=== PATIENT | male | born 1990 | race African-American/Black ===

== ENCOUNTER 2019-03-17 10:16 | Inpatient (IN) ==
[2019-03-17] MEDS ORDERED: ASPIRIN PO ONE ×2 (10:23→15:14)
[2019-03-17 11:02] LABS: BASO# 0.04 X1000 (0.0-0.2); BASO% 0.6 % (0.0-0.8); EOS# 0.11 X1000 (0.0-0.7); EOS% 1.6 % (0.0-10.0); HEMATOCRIT 49.6 % (42.0-52.0); HEMOGLOBIN 16.2 g/dL (14.0-18.0); LYMPH# 2.77 X1000 (1.2-3.4); LYMPH% 40.6 % (20.5-51.1); MCHC 32.7 g/dL (33-37); MCV 82.5 FL (81-99); MONO# 0.53 X1000 (0.11-0.59); MONO% 7.8 % (1.7-9.3); MPV 11.2 FL (7.4-10.4); NEUT# 3.37 X1000 (1.4-6.5); NEUT% 49.4 % (42.2-75.2); PLT 197 X1000 (130-400); RBC 6.01 XMIL (4.7-6.1); RDW 13.4 % (11.5-14.5); WBC 6.82 X1000 (4.8-10.8)
[2019-03-17 11:11] LABS: INR 0.92; PROTIME 12.4 Seconds (11.0-16.0)
[2019-03-17 11:12] LABS: PTT 25.6 Seconds (22.3-41.8)
--- NOTE | 2019-03-17 11:12 | Diag Imaging Result Doc PS360 ---
CHEST-2 VIEWS - 03/17/2019 INDICATION: chest pain COMPARISON: 08/27/2014 FINDINGS: The lungs are normally expanded and clear. Heart size and mediastinal contours are normal. No pneumothorax or pleural effusion. IMPRESSION: Negative exam. Electronically signed by Zac Claire 03/17/2019 11:09 AM
[2019-03-17 11:21] LABS: AGAP 10; ALB/GLOB RATIO 1.5; ALBUMIN 4.3 g/dL (3.5-5.0); ALKALINE PHOSPHATASE 100 U/L (32-122); BUN 15 mg/dL (8-22); CALCIUM 9.3 mg/dL (8.8-10.2); CHLORIDE 103 mmol/L (98-107); COSMO 279; CREATININE 1.2 mg/dL (0.7-1.2); ESTIMATED GFR > 60; GLUCOSE 102 mg/dL (70-104); GOT 19 U/L (10-34); GPT 23 U/L (10-44); POTASSIUM 4.4 mmol/L (3.5-5.1); SODIUM 139 mmol/L (136-145); TCO2 26 mmol/L (25-35); TOTAL BILIRUBIN 0.78 mg/dL (0.20-1.00); TOTAL PROTEIN 7.2 g/dL (6.3-8.3)
[2019-03-17 11:32] LABS: CK PROFILE 239 U/L (24-204)
[2019-03-17 11:48] LABS: CK INDEX 1.2 (0.0-2.5); CK-MB 2.85 ng/mL (0.0-5.0)
--- NOTE | 2019-03-17 11:55 | EKG Report ---
Test Performed on : 03/17/2019 10:20:59 AM Test Reason : chest pain Blood Pressure : / mmHG Vent. Rate : 074 BPM Atrial Rate : 074 BPM P-R Int : 152 ms QRS Dur : 086 ms QT Int : 336 ms P-R-T Axes : 082 051 037 degrees QTc Int : 372 ms Normal sinus rhythm. with sinus arrhythmia. Normal ECG No previous ECGs available Unconfirmed Result
--- NOTE | 2019-03-17 15:36 | PROVIDER DOCUMENTATION ---
This chart was entered by Marily Morse Scribe, acting as scribe for Lv Garza MD. HPI-General Adult - General Chief Complaint: Chest Pain Stated Complaint: "FEELING WEIRD" HEART PT Time Seen by Provider: 03/17/19 11:21 Source: patient, family Allergies/Adverse Reactions: Patient Allergies Allergy/AdvReac Type Severity Reaction Status Date / Time No Known Allergies Allergy Verified 06/19/18 07:35 Home Medications: Home Medication List Medication Instructions Recorded Confirmed Last Taken Type Aspirin [Aspir-Low] 1 tab PO DAILY 03/17/19 03/17/19 Unknown History Atorvastatin Calcium 1 tab PO QHS 03/17/19 03/17/19 Unknown History - History of Present Illness -Gen Adult Nature of Presenting Problems: 29 y/o male presents to the ED with complaint of confusion and sudden onset of S OB which resolved in less than 5 minutes. The patient's friend in the room states she noticed the patient was confused. The patient states he may be "paranoid" due to having heart attack in January of last year. Denies chest pain, n/v/d, headache, and neurological symptoms. NDKA. Location of Pain/Injury: reports: generalized Onset/Duration: reports: this morning Timing: reports: resolved prior to arrival Associated Symptoms: reports: shortness of breath, other (confusion). denies: chest pain, diarrhea, vomiting Review of Systems - Adult - REVIEW OF SYSTEMS - ADULT Constitutional: denies: chills, fever, fatique Eyes: reports: no symptoms reported Ears, Nose, Mouth & Throat: reports: no symptoms reported Cardiovascular: denies: chest pain, palpitations, syncope Respiratory: reports: shortness of breath. denies: hemoptysis, pleurisy, wheezing Gastrointestinal: denies: abdominal pain, diarrhea, nausea, vomiting Genitourinary: denies: dysuria, discharge, frequency, hematuria Musculoskeletal: reports: no symptoms reported Integumentary: reports: no symptoms reported Neurological: reports: other (confusion). denies: ataxia, dizziness/vertigo, headache/migraines, numbness, paresthesia, slurred speech, syncope Psychiatric: reports: no symptoms reported Endocrine: reports: no symptoms reported Hematologic/Lymphatic: reports: no symptoms reported Allergic/Immunologic: reports: no symptoms reported All Other Systems: Reviewed and Negative Past History - Adult - PAST MEDICAL HISTORY-ADULT Review of Records: reports: Old Records Reviewed, Nursing Assessment Review, Medications Reviewed Major Childhood Illnesses: reports: history unknown Cardiovascular: reports: denies history, HTN Respiratory: reports: denies history Gastrointestinal: reports: denies history Obstetrical/Gynecological: reports: denies history Genitourinary: reports: denies history Musculoskeletal: reports: denies history Neurological: reports: denies history Psychiatric: reports: denies history Endocrine/Immune: reports: denies history - PRIOR SURGERIES/PROCEDURES Surgical/Procedure History: reports: none - IMMUNIZATION STATUS Childhood Immunizations: See Nurse Assessment Flu Vaccine: See Nurse Assessment - SOCIAL HISTORY Smoking: cigarettes, cigar Provider spent 3-5 mins advising pt. on dangers of tobacco.: Discussed manners to quit use, and f/u contacts for add'l counseling. Substance Use: alcohol Physical Exam-General - PHYSICAL EXAM-ADULT Initial Vital Signs Reviewed: Yes - CONSTITUTIONAL General Appearance: appears well, alert, no apparent distress - EYES Eyes: PERRL/EOMI, pink conjunctivae - HEAD, EARS, NOSE, MOUTH & THROAT HENMT: normocephalic/atraumatic, moist mucous membranes - NECK Neck: full range of motion, supple - RESPIRATORY Respiratory: lungs clear, normal breath sounds. negative: rales, rhonchi, wheezing - CARDIOVASCULAR Cardiovascular: regular rate, rhythm, no edema, no gallop, no JVD, no murmur - GASTROINTESTINAL (ABDOMEN) Abdominal Exam: non tender, soft. negative: distended, guarding, rebound - MUSCULOSKELETAL Peripheral Pulses: radial (R): 4+, radial (L): 4+ - NEUROLOGIC Neurologic: candy roller II-XII nml as tested. negative: aphasia, facial droop, focal weakness Progress - PLAN OF CARE/RESULTS Progress/Plan/Lab Results: Vital Signs - 8 hr 03/17/19 10:19 Temperature 97.8 F Pulse Rate 84 Respiratory Rate 16 Blood Pressure 152/91 O2 Sat by Pulse Oximetry 100 Laboratory Results - last 24 hr 03/17/19 03/17/19 03/17/19 10:43 10:43 10:43 WBC 6.82 RBC 6.01 Hgb 16.2 Hct 49.6 MCV 82.5 MCH 27.0 MCHC 32.7 L RDW Std Deviation 13.4 Plt Count 197 MPV 11.2 H Immature Gran % (Auto) 0.0 Neut % (Auto) 49.4 Lymph % (Auto) 40.6 [place] % (Auto) 7.8 Eos % (Auto) 1.6 Baso % (Auto) 0.6 Immature Gran # (Auto) 0.00 Neut # (Auto) 3.37 Lymph # (Auto) 2.77 [place] # (Auto) 0.53 Eos # (Auto) 0.11 Baso # (Auto) 0.04 PT 12.4 INR 0.92 PTT (Actin FS) 25.6 Sodium 139 Potassium 4.4 Chloride 103 Carbon Dioxide 26 Anion Gap 10 BUN 15 Creatinine 1.2 Estimated GFR/1.73 m2 > 60 BUN/Creatinine Ratio 13 Glucose 102 Calculated Osmolality 279 Calcium 9.3 Total Bilirubin 0.78 AST 19 ALT 23 Alkaline Phosphatase 100 Creatine Kinase 239 H Troponin T High Sens Total Protein 7.2 Albumin 4.3 Globulin 2.9 Albumin/Globulin Ratio 1.5 03/17/19 10:43 WBC RBC Hgb Hct MCV MCH MCHC RDW Std Deviation Plt Count MPV Immature Gran % (Auto) Neut % (Auto) Lymph % (Auto) [place] % (Auto) Eos % (Auto) Baso % (Auto) Immature Gran # (Auto) Neut # (Auto) Lymph # (Auto) [place] # (Auto) Eos # (Auto) Baso # (Auto) PT INR PTT (Actin FS) Sodium Potassium Chloride Carbon Dioxide Anion Gap BUN Creatinine Estimated GFR/1.73 m2 BUN/Creatinine Ratio Glucose Calculated Osmolality Calcium Total Bilirubin AST ALT Alkaline Phosphatase Creatine Kinase Troponin T High Sens 39 H Total Protein Albumin Globulin Albumin/Globulin Ratio Orders Category Date Time Status Cardiac Monitoring DIRECTED Care 03/17/19 10:23 Active Oxygen Therapy- ED Nursing DIRECTED Care 03/17/19 10:23 Active Saline Loc NOW Care 03/17/19 10:23 Active CHEST-2 VIEWS [RAD] Stat Exams 03/17/19 10:23 Completed CBC WITH ELECTRONIC DIFF [HEME] Stat Lab 03/17/19 10:43 Completed CK PROFILE [SP CHEM] Stat Lab 03/17/19 10:43 Results COMPREHENSIVE METABOLIC PANEL [CHEM] Stat Lab 03/17/19 10:43 Results PRO B-NATRIURETIC PEPTIDE Stat Lab 03/17/19 10:43 Received PROTIME WITH INR [COAG] Stat Lab 03/17/19 10:43 Completed PTT [COAG] Stat Lab 03/17/19 10:43 Completed TROPONIN T HIGH SENSITIVITY Stat Lab 03/17/19 10:43 Completed Aspirin Med 03/17/19 10:23 Discontinued 325 mg PO NOW ONE CP/SOB/Palp >45 yrs of Age Stat Oth 03/17/19 10:23 Ordered EKG [EKG] Stat Ther 03/17/19 10:23 Ordered Result Diagrams: 03/17/19 10:43 03/17/19 10:43 - EKG 1 Time of EKG reading by physician:: 10:25 EKG Read and Signed by:: Lv Garza EKG Interpretation (*Must complete 3 of following elements*): Abnormal Rate: 74 Rhythm: NSR w/sinus arrhythmia [place]: normal ST Wave: normal 2 Time of EKG reading by physician:: 12:53 EKG Read and Signed by:: Lv Garza EKG Interpretation (*Must complete 3 of following elements*): Abnormal Rate: 80 Rhythm: NSR w/sinus arrhythmia [place]: normal - XRAY 1 XRAY Study: Chest (CHEST-2 VIEWS - 03/17/2019 INDICATION: chest pain COMPARISON: 08/27/2014 FINDINGS: The lungs are normally expanded and clear. Heart size and mediastinal contours are normal. No pneumothorax or pleural effusion. IMPRESSION: Negative exam. Electronically signed by Zac Claire 03/17/2019 11:09 AM) Impression: Normal - CONSULTS/PCP/HOSPITALIST Notification #1 *Consult/PCP/Hospitalist*: Dr. Simons, Cardiology Time Discussed: 14:17 Reason/Comments: elevated troponin Consult Disposition: Admit (through hospitalist) #2 Consult: Hospitalists Time Discussed: 15:34 Consult Disposition: Will see in ED, Admit Departure - Departure Date of Disposition Decision: 03/17/19 Time of Disposition Decision: 14:21 DIAGNOSIS: Elevated troponin I level Disposition: ADMITTED INPATIENT 09 Certified Medical Emergency: Emergent Condition: Good Referrals and Follow-Ups: None,PCP [Primary Care Provider] - - Critical Care Note This patient required my direct & personal management of CC.: No Attestation - Physician/ CHAVA Attestation Patient care was provided by Advanced Practice Provider:: No The physician spent face to face time with patient:: Yes Advanced Practice Provider documentation review:: Supervising physician onsite and consulted in the evaluation and care of this patient. The physician did have a face to face encounter with the patient. This chart was documented by the indicated scribe, (Marily Morse, Mary) and accurately reflects the services I performed and decisions made by Greg whitmore Alex T., MD, as attested by the provider's signature.
[2019-03-17] MEDS ORDERED: ZOFRAN IV PRN (15:59)
[2019-03-17] MEDS ORDERED: TYLENOL PO PRN (15:59)
--- NOTE | 2019-03-17 16:15 | EKG Report ---
Test Performed on : 03/17/2019 12:52:47 PM Test Reason : CP Blood Pressure : / mmHG Vent. Rate : 080 BPM Atrial Rate : 080 BPM P-R Int : 160 ms QRS Dur : 084 ms QT Int : 332 ms P-R-T Axes : 075 045 020 degrees QTc Int : 382 ms Normal sinus rhythm. with sinus arrhythmia. Normal ECG When compared with ECG of 17-MAR-2019 10:20, (Unconfirmed) No significant change was found Unconfirmed Result
[2019-03-17] MEDS ORDERED: NS 1,000 ML IV SCH (18:45)
[2019-03-17 18:50] LABS: URINE SOURCE CLEAN CATCH
[2019-03-17 18:53] LABS: BILIRUBIN URINE NEGATIVE (NEGATIVE); BLOOD URINE NEGATIVE (NEGATIVE); COLOR YELLOW; GLUCOSE URINE NEGATIVE (NEGATIVE); KETONE URINE NEGATIVE (NEGATIVE); LEUKOCYTES URINE TRACE (NEGATIVE); NITRITE URINE NEGATIVE (NEGATIVE); PH URINE 8.5; PROTEIN URINE TRACE mg/dL (NEGATIVE); SP GRAVITY URINE 1.021; TURBIDITY URINE CLEAR (CLEAR); UROBILINOGEN URINE NORMAL (NORMAL)
[2019-03-17 18:56] LABS: UR EPITHELIAL CELLS <10 /HPF (<10); URINE BACTERIA NEGATIVE /HPF; URINE RBC <10 /HPF (<10)
[2019-03-17 19:06] LABS: URINE CASTS NONE SEEN; URINE CRYSTALS NONE SEEN; URINE SMALL ROUND CELLS TRANS PRESENT; URINE YEAST NONE SEEN
[2019-03-17 19:33] LABS: CK INDEX 1.2 (0.0-2.5); CK-MB 2.54 ng/mL (0.0-5.0)
--- NOTE | 2019-03-17 20:02 | HISTORY AND PHYSICAL ---
CHIEF COMPLAINT: Chest pain this morning. HISTORY OF PRESENT ILLNESS: Mr. Iraheta is a 29-year-old male with a history of DE in January of last year, hypertension, and hyperlipidemia who presented to the ER today with a chief complaint of chest pain that started at 8 a.m. this morning. The patient reports that he was in the shower when all of a sudden he experienced sharp pain in the left anterior chest wall. It was associated with shortness of breath, but no palpitations or diaphoresis. The patient's reports that the patient was a little nervous and disoriented after the pain started. He rates the pain at about a 2/10 in intensity at its worst. The patient states that he has been under lot of stress at work and currently him and his have been sleeping in his car. The patient reports that he smokes cigarettes occasionally. In the ER, the patient was noted to have an initial troponin of 39. A repeat done 2 hours later was noted to be elevated at 101. The EKG was noted to be unremarkable. PAST MEDICAL HISTORY: 1. History of DE in January 2019. 2. Hypertension. 3. Hyperlipidemia. 4. Tobacco dependence. PAST SURGICAL HISTORY: None. SOCIAL HISTORY: The patient states that he smokes cigarettes occasionally. He also drinks alcohol occasionally. He denies any illicit drug use. 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 ALLERGIES: No known drug allergies. HOME MEDICATIONS: 1. Lipitor 40 mg oral at bedtime. 2. Aspirin 81 mg p.o. daily. FAMILY HISTORY: Reviewed. REVIEW OF SYSTEMS: A 12-point review of systems has been performed. Please refer to the history of present illness for pertinent positives and negatives. PHYSICAL EXAMINATION: VITAL SIGNS: Temperature 97.9 degrees, blood pressure 156/85, heart rate 70, respirations 14, O2 saturations 100% on room air. GENERAL: This is a young male lying in bed in no acute distress. SKIN: No rashes. No lesions. Normal capillary refill. HEENT: Normocephalic, atraumatic. PERRLA, EOMI. Trachea midline. HEART: S1, S2 normal. Regular rate and rhythm. LUNGS: Clear to auscultation bilaterally. No wheezing. No rales. No rhonchi. ABDOMEN: Positive bowel sounds. Soft, nontender, nondistended. EXTREMITIES: No edema. No cyanosis. NEUROLOGIC: The patient is alert and oriented x4. No focal neurologic deficits noted. Cranial nerves 2-12 intact. LABS: White blood cell count 6.8, hemoglobin 16, hematocrit 49, platelets 197,000, sodium 139, potassium 4.4, chloride 103, CO2 26, BUN 15, creatinine 1.2, glucose 102, troponin 101, CK 239. Chest x-ray shows no acute findings. EKG shows normal sinus rhythm. ASSESSMENT AND PLAN: 1. Chest pain. The patient has a history of myocardial infarction. His second troponin is elevated at 101. We will admit the patient. We will restart the aspirin and Lipitor. Will also repeat the cardiac enzymes. We will consult with the manager bridge for further recommendations. We will also order an echocardiogram. 2. Deep vein thrombosis prophylaxis. We will start the patient on Lovenox. cc: Laquita Raygoza MD
[2019-03-17] MEDS ORDERED: LIPITOR PO SCH (21:00)
[2019-03-17 21:46] LABS: UR AMPHETAMINES QUAL NONE DETECTED (NONE DETECT); UR BARBITUATES QUAL NONE DETECTED (NONE DETECT); UR BENZODIAZEPIN QUAL NONE DETECTED (NONE DETECT); UR CANNABINOIDS QUAL NONE DETECTED (NONE DETECT); UR COCAINE QUAL NONE DETECTED (NONE DETECT); UR METHADONE QUAL NONE DETECTED (NONE DETECT); UR OPIATES QUAL NONE DETECTED (NONE DETECT); UR OXYCODONE QUAL NONE DETECTED (NONE DETECT); UR PCP QUAL NONE DETECTED (NONE DETECT)
[2019-03-18 06:10] LABS: HEMATOCRIT 47.6 % (42.0-52.0); HEMOGLOBIN 15.8 g/dL (14.0-18.0); MCH 27.5 PG (27-31); MCHC 33.2 g/dL (33-37); MCV 82.8 FL (81-99); RBC 5.75 XMIL (4.7-6.1); RDW 13.6 % (11.5-14.5); WBC 5.05 X1000 (4.8-10.8)
[2019-03-18 06:44] LABS: AGAP 10; BUN 12 mg/dL (8-22); CALCIUM 9.1 mg/dL (8.8-10.2); CHLORIDE 106 mmol/L (98-107); CHOLESTEROL 119 mg/dL (0-200); COSMO 277; ESTIMATED GFR > 60; GLUCOSE 100 mg/dL (70-104); HDL 45 mg/dL (35-55); LDL 57 mg/dL; POTASSIUM 4.2 mmol/L (3.5-5.1); SODIUM 139 mmol/L (136-145); TCO2 23 mmol/L (25-35); TRIGLYCERIDES 83 mg/dL (39-160); VLDL 17 mg/dL
[2019-03-18] MEDS ORDERED: PROTONIX PO SCH (07:00)
--- NOTE | 2019-03-18 07:24 | EKG Report ---
Test Performed on : 03/18/2019 06:53:26 AM Test Reason : chest pain Blood Pressure : / mmHG Vent. Rate : 069 BPM Atrial Rate : 069 BPM P-R Int : 152 ms QRS Dur : 084 ms QT Int : 352 ms P-R-T Axes : 075 042 019 degrees QTc Int : 377 ms Normal sinus rhythm. Normal ECG When compared with ECG of 17-MAR-2019 12:52, (Unconfirmed) No significant change was found Confirmed by Farooq CHAVEZ, Angel Botello ([id number]) on 03/18/2019 6:02:01 PM
[2019-03-18] MEDS ORDERED: LOVENOX SUBQ SCH (09:00)
[2019-03-18] MEDS ORDERED: LOPRESSOR PO SCH (09:00)
[2019-03-18] MEDS ORDERED: ASPIRIN PO SCH (09:00)
--- NOTE | 2019-03-18 11:47 | CARDIOLOGY CONSULTATION ---
DATE: 03/18/2019 REASON FOR CONSULTATION: Cardiology was consulted for chest pain. HISTORY OF PRESENT ILLNESS: Mr. Iraheta is a 29-year-old gentleman, who came to the emergency room with sharp episode of chest pain associated with some dizziness, not associated with any palpitations. Patient today states that he was very nervous. He has been doing 2 jobs and is under significant stress. He and his have been sleeping in the car. He smokes a cigarette occasionally. In the emergency room, the patient was noted to have an initial troponin of 39, repeat troponin was 101. Electrocardiogram was unremarkable. The patient had chest pain and presented to [place] ER in January. At that time, his troponin had gone up to 300 high intensity troponin, and he was transferred to [facility], underwent a left heart catheterization on 02/14/2019 which revealed 20% LAD lesion, normal other coronary arteries with normal hemodynamics. Patient was subsequently discharged from there. HOME MEDICATIONS: Include Lipitor 40, aspirin 81. PAST MEDICAL HISTORY: 1. Abnormal cardiac enzymes followed by cardiac catheterization. No significant coronary artery disease in January 2019. 2. History of tobacco abuse. 3. Hyperlipidemia. MEDICATIONS: He is not known to be allergic to any medications. REVIEW OF SYSTEM: A 14-point review of systems was done. GI System: There is no history of nausea, vomiting, diarrhea. There is no history of hematemesis or melena. Central nervous system: No focal weakness to suggest a CVA or TIA. System: There is no dysuria or hematuria. Blood pressure on presentation was 156/85 Cardiovascular System: Normal jugular venous pressure. There no thyromegaly. No carotid bruit. First and second heart sounds were heard. There is no S3, S4, or gallop. Respiratory System: Normal air entry. There is no crepitations or rhonchi. PHYSICAL EXAMINATION: Abdomen: Soft, nontender. There was no guarding or rigidity. Bowel sounds were heard. Central nervous system: Alert and was moving all 4 extremities. Extremities: Examination of extremities revealed no pedal edema. HEENT: Atraumatic, normocephalic. Pupils were equal and reacting to light. ASSESSMENT AND PLAN: Mr. Ernesto Iraheta is a 29-year-old Afro[place] gentleman, who comes in with complaints of chest pain which is atypical in nature. He was admitted in January 2019 with elevated troponin going up to 300 and underwent a left heart catheterization which revealed insignificant coronary artery disease. The patient is under significant stress. Symptoms of chest pain atypical. He has a followup appointment to see steel die press set up operator in [place]. RECOMMENDATIONS: 1. Would recommend continuing with his aspirin and Lipitor. I have advised him regarding stopping smoking. 2. Electrocardiogram revealed normal sinus rhythm. There were no ST-T changes to suggest ischemia or infarction. cc: Sky Farias MD
[2019-03-18 11:54] VITALS: BP 157/88
--- NOTE | 2019-03-19 13:54 | DISCHARGE SUMMARY ---
ADMISSION DATE: 03/17/2019 DISCHARGE DATE: 03/18/2019 FINAL DISCHARGE DIAGNOSES: 1. Chest pain. 2. Tobacco dependence. 3. Hypertension. CONSULTATIONS: Cardiology consultation with Dr. Farias. HOSPITAL COURSE: Mr. Iraheta is a 29-year-old male who presented to the ER with a chief complaint of chest pain. The patient reports that he is under a lot of stress at this time and has been feeling very anxious. The initial troponin was noted to be normal. However, a 2nd troponin done a few hours later was elevated at 101. In light of this and the patient's history of AL, he was admitted to the hospitalist service. Serial cardiac enzymes and EKGs were noted to be unremarkable. The patient was advised to continue to take his medications as prescribed. The patient was seen by the modern and contemporary art curator who agreed with the assessment. The patient was also provided with a [facility] referral to help obtain his medications since he did not have health insurance. The patient was cleared for discharge home on 03/18/2028. DISCHARGE MEDICATIONS: 1. Aspirin 81 mg p.o. daily. 2. Lopressor 25 mg oral every 12 hours. 3. Nitroglycerin 0.4 mg sublingual q.5 minutes p.r.n. for chest pain. 4. Lipitor 40 mg p.o. at bedtime. DISCHARGE DIET: Low-sodium low-cholesterol diet. ACTIVITY: As tolerated. FOLLOWUP INSTRUCTIONS: The patient will need [facility] [place] as scheduled. cc: Laquita Raygoza MD
== END 2019-03-18 12:30 | disposition home or self-care (01) | DRG 313 ==
LOC: ED 10:16 → 2N 16:33
PROVIDERS: ATTEND Internal Medicine